=== PATIENT | male | born 1985 | race Caucasian/White ===

== ENCOUNTER 2018-11-18 09:06 | Emergency (ER) | payer OTHER ==
[~2018-11-18] VITALS: Ht 170.2 cm; Wt 130.6 kg
[2018-11-18 09:17] VITALS: Ht 170.2 cm; Wt 130.6 kg
[2018-11-18 10:47] VITALS: BP 122/78
== END 2018-11-18 10:47 | disposition home or self-care (01) ==
LOC: ED 09:06
DX: N13.2 Hydronephrosis with renal and ureteral calculous obstruction (principal)
CPT/HCPCS: J1885; Q0092